=== PATIENT | male | born 1955 | race Caucasian/White ===

== ENCOUNTER → 2019-06-30 | Outpatient (CLI) | payer OTHER ==
--- NOTE | 2019-06-30 14:50 | RAD ---
EXAM: Left elbow, 3 views. HISTORY: Pain. COMPARISON: None. FINDINGS: 3 views of the left elbow are obtained. There is no fracture, dislocation or subluxation. There is no joint effusion. IMPRESSION: No acute osseous finding. Electronically signed by: Tamia Kerns MD (06/30/2019 2:47 PM) [id number]
== END | disposition home or self-care (01) ==
LOC: RAD 14:29
PROVIDERS: ATTEND Physician Assistant
DX: M25.522 Pain in left elbow (principal)
CPT/HCPCS: 73080

== ENCOUNTER → 2019-08-07 | Outpatient (CLI) | payer OTHER ==
--- NOTE | 2019-08-07 10:26 | RAD ---
EXAM: FINGER(S) RIGHT 08/07/2019 12:00 AM CLINICAL INDICATION:First digit pain and clicking for one to 2 months COMPARISON:None TECHNIQUE:3 views of the right hand FINDINGS:No acute osseous fracture. Alignment is normal. Joint spaces are maintained. There is a 5 x 4 mm round lucency in the ulnar base of the thumb distal phalanx, best seen on PA view of the hand. Soft tissue is normal. IMPRESSION:5 mm round lucency in the thumb distal phalanx. This is likely a benign cyst or enchondroma. No definite aggressive features by radiograph. MRI could be obtained if clinically indicated. Electronically signed by: Becky Lane MD (08/07/2019 10:23 AM) [id number]
== END ==
LOC: DXRAD 08:38
PROVIDERS: ATTEND Physician Assistant
DX: M24.841 Other specific joint derangements of right hand, not elsewhere classified (principal)
CPT/HCPCS: 73140